=== PATIENT | female | born 1945 | race Caucasian/White ===

== ENCOUNTER → 2017-08-19 | Outpatient (CLI) | payer OTHER, BC | END | disposition home or self-care (01) | LOC: RAD 13:54 | PROC: 3E0R3KZ Introduction of Other Diagnostic Substance into Spinal Canal, Percutaneous Approach (ICD-10-PCS; principal; 2017-08-19) | DX: M43.17 Spondylolisthesis, lumbosacral region (principal); M51.25 Other intervertebral disc displacement, thoracolumbar region; M46.97 Unspecified inflammatory spondylopathy, lumbosacral region; M48.07 Spinal stenosis, lumbosacral region; M25.78 Osteophyte, vertebrae; M24.28 Disorder of ligament, vertebrae | CPT/HCPCS: 62304; 72110; 72132 ==